=== PATIENT | male | born 2000 | race African-American/Black ===

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

== ENCOUNTER 2022-02-21 22:54 | Emergency (ER) | payer OTHER ==
[~2022-02-21] VITALS: Ht 182.9 cm; Wt 72.3 kg
[~2022-02-21 22:54] MED LIST: PENI500T PO
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
[2022-02-21 23:19] VITALS: BP 164/103
[2022-02-21] MEDS ORDERED: DIPHTH,PERTUSS(ACELL),TET TOX 0.5 ML DISP.SYRIN. VAX IM ONE (23:45)
--- NOTE | 2022-02-21 23:48 | RAD ---
Exam: Bilateral knees 2 views INDICATION: Knee pain, pain TECHNIQUE: Frontal and lateral views of the right and left knee Comparisons: None FINDINGS: Right knee: Bone mineralization is normal. No acute or healed fractures. Soft tissues are unremarkable. Joint spa ivana are well-maintained. Left knee: Bone mineralization is normal. No acute fractures. Soft tissues are unremarkable. Joint spaces are we ll-maintained. IMPRESSION: No acute osseous abnormality of the right or left knee Electronically signed by: Lisa Ravi MD (02/21/2022 11:46 PM) NEENA
--- NOTE | 2022-02-21 23:52 | RAD ---
Three views left shoulder History: pain Internally and externally rotated AP of shoulder obtained, as well as "Y" view. The glenohumeral relationship is normal. The visualized osseous structures appear normal. Impression: No acute findings. end impression Electronically signed by: Mansoor Bradley III, MD (02/21/2022 11:50 PM) [facility]
== END 2022-02-22 00:37 | disposition home or self-care (01) ==
LOC: ER 22:54
DX: S80.212A Abrasion, left knee, initial encounter (principal); S80.211A Abrasion, right knee, initial encounter; M25.512 Pain in left shoulder; V29.60XA Unspecified motorcycle rider injured in collision with unspecified motor vehicles in traffic accident, initial encounter; Y93.89 Activity, other specified; Y92.89 Other specified places as the place of occurrence of the external cause; Y99.8 Other external cause status
CPT/HCPCS: 29105; 73030; 73560; 90471; 90715; 96372; 99284; J3010